=== PATIENT | female | born 1950 | race Caucasian/White ===

== ENCOUNTER → 2017-12-31 | Outpatient (REF) | payer MEDICARE | LOC: M LAB REF 16:28 | DX: R30.0 Dysuria (principal) | CPT/HCPCS: 87186 ==

== ENCOUNTER → 2018-07-19 | Outpatient (REF) | payer MEDICARE ==
[2018-07-19 17:31] LABS: APPEARANCE, URINE CLEAR (CLEAR); BACTERIA, URINE AUTO NEGATIVE (NEGATIVE); BILIRUBIN, URINE AUTO NEGATIVE (NEGATIVE); BLOOD, URINE BLOOD NEGATIVE (NEGATIVE); COLOR, URINE YELLOW (YELLOW); GLUCOSE, URINE (UA) AUTO NEGATIVE (NEGATIVE); KETONE, URINE AUTO NEGATIVE (NEGATIVE); LEUKOCYTE ESTERASE, URINE AUTO NEGATIVE (NEGATIVE); NITRITE, URINE AUTO NEGATIVE (NEGATIVE); PROTEIN, URINE AUTO NEGATIVE (NEGATIVE); RBC, URINE AUTO 0 /HPF (0-3); SPECIFIC GRAVITY URINE AUTO 1.014 (1.002-1.035); SQUAMOUS EPITHELIAL CELL UR AU 0 /HPF (0-6); UROBILINOGEN, URINE AUTO 0.2 mg/dL (0.0-2.0); WBC, URINE AUTO 0 /HPF (0-3)
== END ==
LOC: M SFHCCAPE 10:00
PROVIDERS: ATTEND Physician Assistant
DX: R30.0 Dysuria (principal)
CPT/HCPCS: 81001; 81002; 87086; G0463

== ENCOUNTER → 2018-09-21 | Outpatient (CLI) | payer MEDICARE ==
--- NOTE | 2018-09-26 16:28 | REPMRS ---
Patient History The patient states she had a clinical breast exam in 05/2018. Patient is postmenopausal. No known family history of cancer. Benign excisional biopsy of the left breast, 1996. Took hormonal contraceptives for 10 years. Digital Woman Screen Mammo: September 21, 2018 - Exam #: [id number] Bilateral CC and MLO view(s) were taken. Technologist: Maricel Gomez, Technologist Prior study comparison: 2016, bilateral digital mammo screening bilat, performed at [facility] [place]. November 23, 2015, bilateral digital woman screen mammo, performed at [facility] [place]. November 17, 2014, bilateral digital woman screen mammo, performed at [facility] [place]. FINDINGS: There are scattered fibroglandular densities. There has been no change in the appearance of the mammogram from the prior studies. There is a mild amount of scattered fibroglandular density which is fairly symmetric. There is no interval development of dominant mass, architectural distortion, or clustered microcalcification suggestive of malignancy. 3-D tomosynthesis shows no additional findings. Assessment: BI-RADS/ACR category 1 mammogram. Negative Mammogram. Recommendation Routine screening mammogram of both breasts in 1 year (for women over age 40). This patient's Lifetime Breast Cancer RIsk is estimated at 4.3 %. This mammogram was interpreted with the aid of an FDA-approved computer-aided dectection system. Electronically Signed By: Tyson Plummer MD 09/26/18 [id number]
== END ==
LOC: M WHC 12:42
PROVIDERS: ATTEND Family Medicine
DX: Z12.31 Encounter for screening mammogram for malignant neoplasm of breast (principal)

== ENCOUNTER → 2018-12-07 | Outpatient (REF) | payer MEDICARE ==
[2018-12-07 16:30] LABS: APPEARANCE, URINE CLEAR (CLEAR); BACTERIA, URINE AUTO NEGATIVE (NEGATIVE); BASO % 0.9 % (0.0-1.0); BILIRUBIN, URINE AUTO NEGATIVE (NEGATIVE); BLOOD, URINE BLOOD NEGATIVE (NEGATIVE); COLOR, URINE YELLOW (YELLOW); EOS # 0.2 10^3/uL (0.0-0.50); EOS % 3.5 % (0.0-3.0); GLUCOSE, URINE (UA) AUTO NEGATIVE (NEGATIVE); HEMATOCRIT 42.8 % (36.0-47.0); KETONE, URINE AUTO NEGATIVE (NEGATIVE); LEUKOCYTE ESTERASE, URINE AUTO NEGATIVE (NEGATIVE); LYMPH # 1.4 10^3/uL (1.5-4.5); LYMPH % 31.1 % (24.0-44.0); MEAN CORPUSCULAR HGB CONC 32.7 g/dl (32.0-36.5); MEAN CORPUSCULAR VOLUME 94.9 fl (80.0-96.0); MONO # 0.4 10^3/uL (0.0-0.8); MONO % 7.7 % (0.0-5.0); MUCUS, URINE SMALL (NEGATIVE); NEUTROPHILS # 2.6 10^3/uL (1.8-7.7); NEUTROPHILS % 56.6 % (36.0-66.0); NITRITE, URINE AUTO NEGATIVE (NEGATIVE); PLATELET COUNT, AUTOMATED 260 10^3/uL (150-450); PROTEIN, URINE AUTO NEGATIVE (NEGATIVE); RBC, URINE AUTO 1 /HPF (0-3); RED BLOOD COUNT 4.51 10^6/uL (4.00-5.40); SPECIFIC GRAVITY URINE AUTO 1.014 (1.002-1.035); SQUAMOUS EPITHELIAL CELL UR AU 0 /HPF (0-6); UROBILINOGEN, URINE AUTO 0.2 mg/dL (0.0-2.0); WBC, URINE AUTO 1 /HPF (0-3); WHITE BLOOD COUNT 4.6 10^3/uL (4.0-10.0)
[2018-12-07 16:48] LABS: ALBUMIN 3.9 GM/DL (3.2-5.2); ALT/SGPT 23 U/L (12-78); BILIRUBIN,TOTAL 0.4 MG/DL (0.2-1.0); BLOOD UREA NITROGEN 14 MG/DL (7-18); CALCIUM LEVEL 9.2 MG/DL (8.8-10.2); CARBON DIOXIDE LEVEL 27 MEQ/L (21-32); CHLORIDE LEVEL 108 MEQ/L (98-107); CHOLESTEROL LEVEL 199 MG/DL (<200); CHOLESTEROL RISK RATIO 3.826 (<5); CREATININE FOR GFR 0.76 MG/DL (0.55-1.30); FREE T4 0.94 NG/DL (0.76-1.46); GLOMERULAR FILTRATION RATE > 60.0 (>45); GLUCOSE, FASTING 91 MG/DL (70-100); HDL CHOLESTEROL 52 MG/DL (>40); LDL CHOLESTEROL 125 MG/DL (<100); LIPASE 102 U/L (73-393); NON-HDL-C 147 MG/DL; POTASSIUM SERUM 4.3 MEQ/L (3.5-5.1); SODIUM LEVEL 140 MEQ/L (136-145); TOTAL PROTEIN 7.5 GM/DL (6.4-8.2); TRIGLYCERIDES LEVEL 110 MG/DL (<150)
[2018-12-07 17:17] LABS: TOTAL 25(OH) VITAMIN D 29.1 NG/ML (30.0-100.0)
== END ==
LOC: M SFHCCAPE 07:13
PROVIDERS: ATTEND Physician Assistant
DX: R10.11 Right upper quadrant pain (principal); Z13.6 Encounter for screening for cardiovascular disorders; Z78.0 Asymptomatic menopausal state; K21.9 Gastro-esophageal reflux disease without esophagitis

== ENCOUNTER → 2018-12-08 | Outpatient (CLI) | payer MEDICARE ==
--- NOTE | 2018-12-08 11:16 | REP ---
RIGHT UPPER QUADRANT SONOGRAPHY: HISTORY: Right upper quadrant pain times 1 year. No comparison imaging. Post cholecystectomy. FINDINGS: Scanning through the right upper quadrant of the abdomen demonstrates homogeneous liver parenchyma. No focal liver lesion is seen. Common bile duct is normal post cholecystectomy measuring 0.8 cm in greatest diameter. No pancreatic abnormality is observed. Normal caliber aorta is seen. There is no evidence of ascites. No hydronephrosis is seen on the right kidney. The right kidney measures 10.7 x 5.5 x 5.0 cm. The right kidney contains two cysts. In the upper pole there is a 1.5 cm cyst and in the lower pole there is a 2.1 cm cyst arising from the right kidney. IMPRESSION: There are two right renal cysts. Post cholecystectomy. Otherwise negative right upper quadrant sonogram. Electronically Signed by Dennis Lou MD 12/08/2018 01:08 P
== END ==
LOC: M RAD 07:17
PROVIDERS: ATTEND Physician Assistant
DX: Q61.02 Congenital multiple renal cysts (principal)

== ENCOUNTER → 2018-12-14 | Outpatient (REF) | payer MEDICARE | LOC: M SFHCCAPE 08:52 | PROVIDERS: ATTEND Physician Assistant | DX: R10.11 Right upper quadrant pain (principal) ==

== ENCOUNTER → 2019-01-05 | Outpatient (REF) | payer MEDICARE ==
[2019-01-05 19:32] LABS: APPEARANCE, URINE CLEAR (CLEAR); BACTERIA, URINE AUTO NEGATIVE (NEGATIVE); BILIRUBIN, URINE AUTO NEGATIVE (NEGATIVE); BLOOD, URINE BLOOD NEGATIVE (NEGATIVE); COLOR, URINE YELLOW (YELLOW); GLUCOSE, URINE (UA) AUTO NEGATIVE (NEGATIVE); KETONE, URINE AUTO NEGATIVE (NEGATIVE); LEUKOCYTE ESTERASE, URINE AUTO TRACE (NEGATIVE); MUCUS, URINE SMALL (NEGATIVE); NITRITE, URINE AUTO NEGATIVE (NEGATIVE); PROTEIN, URINE AUTO NEGATIVE (NEGATIVE); RBC, URINE AUTO 0 /HPF (0-3); SPECIFIC GRAVITY URINE AUTO 1.015 (1.002-1.035); SQUAMOUS EPITHELIAL CELL UR AU 0 /HPF (0-6); UROBILINOGEN, URINE AUTO 0.2 mg/dL (0.0-2.0); WBC, URINE AUTO 2 /HPF (0-3)
== END ==
LOC: M SFHCCAPE 08:41
PROVIDERS: ATTEND Physician Assistant
DX: R35.0 Frequency of micturition (principal)

== ENCOUNTER 2019-07-13 09:51 | Day surgery (SDC) | payer MEDICARE ==
[~2019-07-13] VITALS: Ht 157.5 cm; Wt 68.5 kg
[~2019-07-13 09:51] MED LIST: D32000TA PO; MULT1TAB8 PO; VITA-158 PO
[2019-07-13] MEDS ORDERED: NS 1,000 ML IV ONE (11:00)
[2019-07-13] MEDS ORDERED: LIDOCAINE 2% INJ 100 MG/5 ML SDV (FOR ANES.) As Ordered ONE (11:44)
[2019-07-13] MEDS ORDERED: PROPOFOL 200 MG/20 ML VIAL As Ordered ONE ×2 (11:44→12:02)
--- NOTE | 2019-07-13 12:03 | ROOR ---
Patient Name: Annie Orellana Procedure Date: 07/13/2019 11:41 AM Date of : 1950 Age: 68 Room: [facility] Gender: Female Note Status: Finalized Procedure: Colonoscopy Indications: High risk colon cancer surveillance: Personal history of colonic polyps Providers: Emory Kenney Jr, MD Referring MD: Adriano Nelson MD Requesting Provider: Medicines: Propofol per Anesthesia Complications: No immediate complications. Procedure: Pre-Anesthesia Assessment: - Prior to the procedure, a History and Physical was performed, and patient medications and allergies were reviewed. The patient is competent. The risks and benefits of the procedure and the sedation options and risks were discussed with the patient. All questions were answered and informed consent was obtained. Patient identification and proposed procedure were verified by the physician and the nurse in the pre-procedure area and in the procedure room. Mental Status Examination: alert and oriented. Airway Examination: normal oropharyngeal airway and neck mobility. Respiratory Examination: clear to auscultation. CV Examination: normal. ASA Grade Assessment: II - A patient with mild systemic disease. After reviewing the risks and benefits, the patient was deemed in satisfactory condition to undergo the procedure. The anesthesia plan was to use moderate sedation / analgesia (conscious sedation). Immediately prior to administration of medications, the patient was re-assessed for adequacy to receive sedatives. The heart rate, respiratory rate, oxygen saturations, blood pressure, adequacy of pulmonary ventilation, and response to care were monitored throughout the procedure. The physical status of the patient was re-assessed after the procedure. The Colonoscope was introduced through the anus and advanced to the cecum, identified by appendiceal orifice and ileocecal valve. The colonoscopy was performed without difficulty. The patient tolerated the procedure well. The quality of the bowel preparation was adequate. Findings: The rectum, descending colon, transverse colon, ascending colon, cecum, appendiceal orifice and ileocecal valve appeared normal. Two polyps were found in the recto-sigmoid colon and sigmoid colon. The polyps were small in size. These polyps were removed with a cold snare. Resection and retrieval were complete. A few small-mouthed diverticula were found in the sigmoid colon. Impression: - The rectum, descending colon, transverse colon, ascending colon, cecum, appendiceal orifice and ileocecal valve are normal. - Two small polyps at the recto-sigmoid colon and in the sigmoid colon, removed with a cold snare. Resected and retrieved. - Diverticulosis in the sigmoid colon. Recommendation: - Discharge patient to home (ambulatory). - Repeat colonoscopy in 5 years for surveillance. Emory Kenney MD Emory Kenney Jr, MD 07/13/2019 12:03:28 PM Electronically signed by Emory Kenney Jr, MD Number of Addenda: 0 Note Initiated On: 07/13/2019 11:41 AM Estimated Blood Loss: Estimated blood loss: none.
[2019-07-13 12:25] VITALS: BP 126/72
== END 2019-07-13 12:35 | disposition home or self-care (01) ==
LOC: M OPP 09:51
PROVIDERS: ATTEND Surgery
DX: Z12.11 Encounter for screening for malignant neoplasm of colon (principal); Z86.010 Personal history of colon polyps; K63.5 Polyp of colon; K57.30 Diverticulosis of large intestine without perforation or abscess without bleeding

== ENCOUNTER → 2019-07-24 | Outpatient (REF) | payer MEDICARE ==
[2019-07-24 18:10] LABS: APPEARANCE, URINE CLEAR (CLEAR); BACTERIA, URINE AUTO NEGATIVE (NEGATIVE); BILIRUBIN, URINE AUTO NEGATIVE (NEGATIVE); BLOOD, URINE BLOOD NEGATIVE (NEGATIVE); COLOR, URINE YELLOW (YELLOW); GLUCOSE, URINE (UA) AUTO NEGATIVE (NEGATIVE); KETONE, URINE AUTO NEGATIVE (NEGATIVE); LEUKOCYTE ESTERASE, URINE AUTO NEGATIVE (NEGATIVE); NITRITE, URINE AUTO NEGATIVE (NEGATIVE); PROTEIN, URINE AUTO NEGATIVE (NEGATIVE); RBC, URINE AUTO 0 /HPF (0-3); SPECIFIC GRAVITY URINE AUTO 1.011 (1.002-1.035); SQUAMOUS EPITHELIAL CELL UR AU 0 /HPF (0-6); UROBILINOGEN, URINE AUTO 0.2 mg/dL (0.0-2.0); WBC, URINE AUTO 0 /HPF (0-3)
== END ==
LOC: M SFHCCAPE 10:54
PROVIDERS: ATTEND Physician Assistant
DX: R30.0 Dysuria (principal)
CPT/HCPCS: 81001; 81002; 87086; G0463

== ENCOUNTER → 2019-09-06 | Outpatient (CLI) | payer MEDICARE ==
[2019-09-06 10:56] LABS: APPEARANCE, URINE CLEAR (CLEAR); BACTERIA, URINE AUTO NEGATIVE (NEGATIVE); BILIRUBIN, URINE AUTO NEGATIVE (NEGATIVE); BLOOD, URINE BLOOD NEGATIVE (NEGATIVE); COLOR, URINE YELLOW (YELLOW); GLUCOSE, URINE (UA) AUTO NEGATIVE (NEGATIVE); KETONE, URINE AUTO NEGATIVE (NEGATIVE); LEUKOCYTE ESTERASE, URINE AUTO NEGATIVE (NEGATIVE); MUCUS, URINE SMALL (NEGATIVE); NITRITE, URINE AUTO NEGATIVE (NEGATIVE); PROTEIN, URINE AUTO NEGATIVE (NEGATIVE); RBC, URINE AUTO 0 /HPF (0-3); SPECIFIC GRAVITY URINE AUTO 1.014 (1.002-1.035); SQUAMOUS EPITHELIAL CELL UR AU 0 /HPF (0-6); UROBILINOGEN, URINE AUTO 0.2 mg/dL (0.0-2.0); WBC, URINE AUTO 0 /HPF (0-3)
[2019-09-06 10:57] LABS: BASO # 0.1 10^3/uL (0.0-0.2); BASO % 0.9 % (0.0-1.0); EOS # 0.1 10^3/uL (0.0-0.5); EOS % 2.2 % (0.0-3.0); HEMATOCRIT 43.4 % (36.0-47.0); HEMOGLOBIN 13.9 g/dl (12.0-15.5); LYMPH # 1.4 10^3/uL (1.5-5.0); LYMPH % 26.8 % (24.0-44.0); MEAN CORPUSCULAR HEMOGLOBIN 30.6 pg (27.0-33.0); MEAN CORPUSCULAR VOLUME 95.6 fl (80.0-96.0); MONO # 0.5 10^3/uL (0.0-0.8); MONO % 9.1 % (0.0-5.0); NEUTROPHILS # 3.2 10^3/uL (1.5-8.5); NEUTROPHILS % 60.4 % (36.0-66.0); PLATELET COUNT, AUTOMATED 253 10^3/uL (150-450); RED BLOOD COUNT 4.54 10^6/uL (4.00-5.40); WHITE BLOOD COUNT 5.4 10^3/uL (4.0-10.0)
[2019-09-06 11:40] LABS: ALBUMIN 3.7 GM/DL (3.2-5.2); ALT/SGPT 26 U/L (12-78); BILIRUBIN,TOTAL 0.5 MG/DL (0.2-1.0); BLOOD UREA NITROGEN 17 MG/DL (7-18); CALCIUM LEVEL 8.7 MG/DL (8.8-10.2); CARBON DIOXIDE LEVEL 28 MEQ/L (21-32); CHLORIDE LEVEL 103 MEQ/L (98-107); CREATININE FOR GFR 0.88 MG/DL (0.55-1.30); GLOMERULAR FILTRATION RATE > 60.0 (>39); GLUCOSE, FASTING 101 MG/DL (70-100); LIPASE 101 U/L (73-393); POTASSIUM SERUM 4.1 MEQ/L (3.5-5.1); SODIUM LEVEL 138 MEQ/L (136-145); TOTAL PROTEIN 7.5 GM/DL (6.4-8.2)
== END ==
LOC: M LAB 09:26
PROVIDERS: ATTEND Physician Assistant
DX: E10.11 Type 1 diabetes mellitus with ketoacidosis with coma (principal)

== ENCOUNTER → 2019-09-08 | Outpatient (CLI) | payer MEDICARE ==
[~2019-09-08] MED LIST changes: +GASTROGRAFIN SOLUTION 30ML (Q9963) As Ordered ONE; +ISOVUE-370 76% 100ML VIAL (Q9967) As Ordered ONE
--- NOTE | 2019-09-08 12:12 | REP ---
CT of the abdomen and pelvis without and with IV contrast and with bowel contrast for right lower quadrant pain: There are no comparison studies. The visualized lung andrade are unremarkable. The hepatic parenchyma is homogeneous. There is a cholecystectomy. The common biliary duct measures 16 mm transverse diameter and is dilated even in a postcholecystectomy patient. However, there is no intrahepatic biliary duct dilatation. There is no pancreatic duct dilatation. The pancreas and spleen are unremarkable. The adrenals, kidneys and abdominal aorta are unremarkable. There is no periaortic adenopathy or mass. There is no bowel distension or obstruction. There is no diverticulosis or diverticulitis. The mesentery is unremarkable. Pelvis: The appendix is unremarkable. The uterus, adnexa and bladder are unremarkable. There is no ascites or adenopathy. There is bilateral hip osteoarthritis. There is degenerative disc disease in the lumbar spine. I suspect spinal stenosis in the lumbar spine L4-5. Impression: Cholecystectomy. Dilated common biliary duct without intrahepatic ductal dilatation or pancreatic duct dilatation. Probable spinal stenosis and L4-5. Otherwise, negative CT of the abdomen and pelvis. Electronically Signed by Royce Moreno MD 09/08/2019 12:04 P
== END ==
LOC: M RAD 09:57
PROVIDERS: ATTEND Physician Assistant
DX: R10.11 Right upper quadrant pain (principal)
CPT/HCPCS: 74178; Q9963; Q9967

== ENCOUNTER → 2019-10-06 | Outpatient (CLI) | payer MEDICARE ==
[~2019-10-06] MED LIST changes: -GASTROGRAFIN SOLUTION 30ML (Q9963) As Ordered ONE; -ISOVUE-370 76% 100ML VIAL (Q9967) As Ordered ONE
--- NOTE | 2019-10-06 10:16 | REP ---
MRCP EXAM WITHOUT CONTRAST: HISTORY: Right upper quadrant pain. Comparison CT study September 08, 2019 shows prominent common hepatic duct segment. TECHNIQUE: Axial and coronal T2-weighted scans were obtained. MRCP acquisition is acquired and maximal intensity projection images are generated in the usual fashion. MRCP FINDINGS: There is no evidence of intrahepatic biliary ductal dilation. The common hepatic and common bile duct segments are somewhat prominent by MRCP measuring 11-12 mm in greatest diameter. The distal common bile duct is normal measuring 5 mm in greatest diameter. Main pancreatic duct is normal. There is no evidence of choledocholithiasis. No mass lesion is evident. There are two simple cysts in the right kidney. There is a tiny simple cyst in the left lobe of the liver. IMPRESSION: Prominent common hepatic and proximal common bile duct segment post cholecystectomy, 11-12 mm. Normal distal CBD. No obstructing lesions seen. No intrahepatic ductal dilation is observed. Correlation with liver function studies suggested. Electronically Signed by Dennis Lou MD 10/06/2019 06:34 P
== END ==
LOC: M RAD 06:26
PROVIDERS: ATTEND Surgery
DX: R10.11 Right upper quadrant pain (principal)

== ENCOUNTER → 2019-11-01 | Outpatient (CLI) | payer MEDICARE ==
[2019-11-01 14:58] LABS: ALBUMIN 3.5 GM/DL (3.2-5.2); BILIRUBIN,DIRECT 0.1 MG/DL (0.0-0.2); BILIRUBIN,TOTAL 0.4 MG/DL (0.2-1.0); TOTAL PROTEIN 7.3 GM/DL (6.4-8.2)
== END ==
LOC: M LAB 13:54
PROVIDERS: ATTEND Physician Assistant
DX: R10.11 Right upper quadrant pain (principal); R12 Heartburn

== ENCOUNTER → 2020-04-12 | Outpatient (CLI) | payer MEDICARE ==
[2020-04-12 12:43] LABS: HEMATOCRIT 42.9 % (36.0-47.0); HEMOGLOBIN 14.1 g/dl (12.0-15.5); MEAN CORPUSCULAR HEMOGLOBIN 30.4 pg (27.0-33.0); MEAN CORPUSCULAR HGB CONC 32.9 g/dl (32.0-36.5); MEAN CORPUSCULAR VOLUME 92.5 fl (80.0-96.0); PLATELET COUNT, AUTOMATED 274 10^3/uL (150-450); RED BLOOD COUNT 4.64 10^6/uL (4.00-5.40); WHITE BLOOD COUNT 7.3 10^3/uL (4.0-10.0)
[2020-04-12 13:32] LABS: ALBUMIN 3.8 GM/DL (3.2-5.2); ALT/SGPT 25 U/L (12-78); BILIRUBIN,DIRECT < 0.1 MG/DL (0.0-0.2); BILIRUBIN,TOTAL 0.3 MG/DL (0.2-1.0); LIPASE 110 U/L (73-393)
== END ==
LOC: M LAB 12:14
PROVIDERS: ATTEND Internal Medicine Gastroenterology
DX: R10.11 Right upper quadrant pain (principal); K83.8 Other specified diseases of biliary tract; R11.0 Nausea

== ENCOUNTER → 2020-05-20 | Outpatient (CLI) | payer MEDICARE ==
--- NOTE | 2020-05-20 10:33 | REPMRS ---
Patient History The patient states she had a clinical breast exam in April 2020. No known family history of cancer. Benign excisional biopsy of the left breast, 1996. Took hormonal contraceptives for 10 years. 3D TOMOSYNTHESIS WAS PERFORMED. [facility] lifetime risk for breast cancer is 4.1%. VOLPARA DENSITY B. Digital Woman Screen Mammo: May 20, 2020 - Exam #: [id number] Bilateral CC and MLO view(s) were taken. Technologist: RT Sanchez Prior study comparison: September 21, 2018, bilateral digital woman screen mammo performed at [facility]. 2017, bilateral digital mammo screening bilat, performed at [facility] [place][Note 3]. FINDINGS: There are scattered fibroglandular densities. There has been no change in the appearance of the mammogram from the prior studies. There is a mild amount of residual fibroglandular tissue which is fairly symmetric. There is no interval development of dominant mass, architectural distortion, or clustered microcalcification suggestive of malignancy. Assessment: BI-RADS/ACR category 1 mammogram. Negative Mammogram. Recommendation Routine screening mammogram in 1 year (for women over age 40). This mammogram was interpreted with the aid of an FDA-approved computer-aided dectection system. Electronically Signed By: Royce Mills MD 05/20/20 [id number]
== END ==
LOC: M WHC 09:28
PROVIDERS: ATTEND Obstetrics & Gynecology
DX: Z12.31 Encounter for screening mammogram for malignant neoplasm of breast (principal); Z92.0 Personal history of contraception

== ENCOUNTER → 2020-07-30 | Outpatient (REF) | payer MEDICARE ==
[~2020-07-30] MED LIST changes: +FISHCAP PO
[2020-07-30 12:37] LABS: INR 0.93; PROTHROMBIN TIME 12.7 SECONDS (12.5-14.3)
== END ==
LOC: M LAB REF 11:18
PROVIDERS: ATTEND Internal Medicine
DX: Z01.818 Encounter for other preprocedural examination (principal)

== ENCOUNTER → 2020-08-03 | Outpatient (CLI) | payer MEDICARE | LOC: M LABSMTC 10:53 | PROVIDERS: ATTEND Anesthesiology | DX: Z01.812 Encounter for preprocedural laboratory examination (principal); Z20.828 Contact with and (suspected) exposure to other viral communicable diseases ==

== ENCOUNTER 2020-08-08 06:00 | Inpatient (IN) | payer MEDICARE ==
[~2020-08-08] VITALS: Ht 157.5 cm; Wt 74.4 kg
[2020-08-08] VITALS (8 sets, daily range): BP systolic 104–145; BP diastolic 54–80
[2020-08-08] MEDS ORDERED: TRANEXAMIC ACID 100 MG/ML 10ML VIAL As Ordered ONE (07:12)
[2020-08-08] MEDS ORDERED: ceFAZolin 1GM VIAL (J0690 PER 500MG) As Ordered ONE (07:12)
[2020-08-08] MEDS ORDERED: SCOPOLAMINE 1MG TRANSDERMAL PATCH As Ordered ONE (07:23)
[2020-08-08] MEDS ORDERED: ACETAMINOPHEN 500 MG TAB As Ordered ONE (07:24)
[2020-08-08] MEDS ORDERED: ceFAZolin 2 GM/D5W 50 ML IV BAG (J0690 PER 500MG) As Ordered ONE (07:24)
[2020-08-08] MEDS ORDERED: LR 1,000 ML IV ONE (07:30)
[2020-08-08] MEDS ORDERED: SCOPOLAMINE 1MG TRANSDERMAL PATCH TOP ONE (07:30)
[2020-08-08] MEDS ORDERED: ACETAMINOPHEN 500 MG TAB PO ONE (07:30)
[2020-08-08] MEDS ORDERED: ceFAZolin SOD 2 GM in IV 1 EA IV ONE (07:30)
[2020-08-08] MEDS ORDERED: METOCLOPRAMIDE INJ 10MG/2ML VIAL (J2765 PER 1) As Ordered ONE (08:00)
[2020-08-08] MEDS ORDERED: MIDAZOLAM INJ 2MG/2ML VIAL (J2250 PER 1MG) As Ordered ONE (08:00)
[2020-08-08] MEDS ORDERED: propofoL 200 MG/20 ML VIAL As Ordered ONE (08:00)
[2020-08-08] MEDS ORDERED: ROCURONIUM BROMIDE 50 MG/5 ML VIAL As Ordered ONE (08:00)
[2020-08-08] MEDS ORDERED: dexameTHASONE 4 MG/ML 1ML VIAL (J1100 PER 1MG) As Ordered ONE (08:00)
[2020-08-08] MEDS ORDERED: SUGAMMADEX SODIUM 500 MG/5 ML VIAL (BRIDION) As Ordered ONE (08:00)
[2020-08-08] MEDS ORDERED: LIDOCAINE 2% 100MG/5ML SDV (FOR ANES.) As Ordered ONE (08:00)
[2020-08-08] MEDS ORDERED: fentaNYL 100 MCG/2 ML INJECTION (J3010) As Ordered ONE ×2 (08:00→08:01)
[2020-08-08] MEDS ORDERED: ONDANSETRON 4MG/2ML VIAL As Ordered ONE (08:00)
[2020-08-08] MEDS ORDERED: DESFLURANE 240 ML INHALANT As Ordered ONE (08:49)
--- NOTE | 2020-08-08 09:34 | RO ---
OPERATIVE NOTE DATE OF OPERATION: 08/08/2020 PREOPERATIVE DIAGNOSIS: Right hip degenerative arthritis. POSTOPERATIVE DIAGNOSIS: Right hip degenerative arthritis. PROCEDURE: Right total hip arthroplasty using a size 6 standard offset Winter stem with a -2 neck x 36 mm diameter ball and a 54 Gription cup with a 54 neutral polyethylene liner. SURGEON: Elijah Moore M.D. ANESTHESIA: General endotracheal tube anesthetic. COMPLICATIONS: None. SPECIMEN: Femoral head. ESTIMATED BLOOD LOSS: 200 mL. COMPLICATIONS: None. ENVIRONMENTAL INSPECTOR: Stacie Lu PA-C DESCRIPTION OF PROCEDURE: Antibiotics were given intravenously preoperative. Successful general endotracheal tube anesthetic was established. She was placed in the lateral decubitus position with right up upper most on a [place] hip positioner with abdominal area well-padded, especially the peroneal nerve and an axillary role was utilized. The right hip area was carefully prepped and draped in the usual sterile fashion. Then after an appropriate time-out, a longitudinal incision was made for a lateral approach to the hip. Bovee cautery was used to coagulate crossing vessels down to the tensor fascia, which was divided in line with the skin incision. We split the gluteus medius anterior one-third posterior two-third junction and divided the underlying gluteus minimus and hip capsule dissecting the tissues from the anterior aspect of the proximal femur as we externally and dislocated the hip anteriorly. The starter reamer was placed in the piriformis fossa followed by the canal finding reamer and then the lateralizing reamer and then, we reamed up to a size 5. Trial broaches were then inserted, advancing it up to a size 5. It was not felt necessary to use the calcar planer. We exposed the acetabulum at this point, performed a labral excision 360 degrees, and then reamed beginning at 47 mm advanced up to 53. The trial 54 cup fit very nicely; thus, I called for the 54 cup. I used the extramedullary alignment jig to estimate our version in abduction and then inserted the 54 cup after copiously irrigated. A central hole eliminator was then placed and then, the polyethylene was placed and secured, made sure it was well-seated. Then we exposed the proximal femur, once again irrigated again as we did several times throughout the surgery, inserted the #5 broach; but now after we irrigated thoroughly, I felt that we could put a size 6. Thus, I did use the #6 reamer to expand the canal distally. Then, we placed a #6 broach and it fit nicely. Trial reduction was performed with a standard 1.5 neck and she had very good stability to flexion, internal rotation, extension, and external rotation. Thus, I felt this was the appropriate size implants to use. We removed the trial, irrigated copiously the femoral canal, and placed the real #6 stem. The 6 stem was a couple millimeters prouder than what the broach was; thus, I did trial with a -2 neck, and she still remained very stable with flexion, internal rotation, extension, and external rotation, and there was really no soft tissue telescoping of significance; thus, I felt the -2 would help prevent overtightening. We then dislocated the hip, dried the trunnion thoroughly, and placed the real #2 head on the trunnion, and then reduced the hip after copiously irrigating once again. We then closed the anterior hip capsule and the gluteus minimus back anatomically with interrupted #1 PDS sutures and the gluteus medius was closed back anatomically with interrupted #1 PDS sutures, irrigating between layers. Closed the tensor fascia with a combination of #1 PDS sutures and a running #1 STRATAFIX. Irrigated the deep subdermal tissues and then closed with 2-0 PDS sutures and haley in the skin covered by an Optifoam dressing, and then she was turned supine, awakened from general endotracheal anesthesia, after having tolerated the procedure well. She was transferred to the recovery room in stable condition. There were no intraoperative complications. Ashley Stacie Lu was critical to the success of this difficult procedure by helping with appropriate soft tissue retraction, help to manipulate the leg, helped to dislocate and relocate the hip several times throughout the surgery, help to close the wound and prepare the patient for surgery, amongst many other tasks to allow me to perform the operation smooth, efficiently, and safely.
[2020-08-08] MEDS ORDERED: MORPHINE 2 MG/ML 1ML VIAL (J2270) As Ordered ONE (09:37)
[2020-08-08] MEDS ORDERED: oxyCODONE 5MG TAB As Ordered ONE (09:37)
[2020-08-08] MEDS: oxyCODONE 5MG TAB PO PRN ×2 (09:38→10:21)
[2020-08-08] MEDS ORDERED: ONDANSETRON 4MG/2ML VIAL IV PRN ×2 (10:15→11:15)
[2020-08-08] MEDS ORDERED: fentaNYL 100 MCG/2 ML INJECTION (J3010) IV PRN (10:15)
[2020-08-08] MEDS ORDERED: LR 1,000 ML IV SCH ×2 (10:15→11:15)
--- NOTE | 2020-08-08 10:22 | REP ---
INDICATION: POST OP EVAL IN PACU WILL CALL WHEN READY Status post arthroplasty. COMPARISON: None. TECHNIQUE: AP and cross-table lateral views. FINDINGS: The patient is status post right hip replacement with normal positioning and appearance to the femoral and acetabular components. Overlying postsurgical changes appreciated. IMPRESSION: Satisfactory right hip replacement radiographs. <Electronically signed by Dallas Cummings > 08/08/20 [id number]
[2020-08-08] MEDS ORDERED: MORPHINE 4 MG/ML 1ML VIAL/SYRINGE (J2270) IV PRN (11:15)
[2020-08-08] MEDS ORDERED: PERCOCET 5MG/325MG TAB PO PRN (11:15)
[2020-08-08] MEDS ORDERED: MORPHINE 2 MG/ML 1ML VIAL (J2270) IV PRN (11:15)
--- NOTE | 2020-08-08 11:53 | CR.PDOC ---
General Date of Consultation: Aug 08, 2020 Consultation REASON FOR CONSULTATION/CHIEF COMPLAINT:med mgt post right VI HISTORY OF PRESENT ILLNESS: 69 y/o female former smoker quit 30 years ago, renal cysts, GERD, vit D deficiency, vitamin C deficiency, OA, hyperlipidemia s/p right hip replacement due to severe OA failed on outpt conservative mgt with limitations of ADLs. Hospitalist was consulted to manage chronic medical problems. She denies chest pain, pressure, tightness, sob, dizziness, lightheadedness, PND, orthopnea, n/v/d/abd pain, dyuria, urgency, frequency. All other ROS negative 12points. In recovery, pt still had numbness of her b/l LE, but able to wiggle her toes, and follow commands. ALLERGIES: Please see below. HOME MEDICATIONS: Please see below. PAST MEDICAL HISTORY: former smoker quit 30 years ago, renal cysts, GERD, vit D deficiency, vitamin C deficiency, OA, hyperlipidemia s/p right hip replacement due to severe OA b/l carpal tunnel PAST SURGICAL HISTORY: cholecystectomy age 15 back surgery in her 40's left knee arthroscopy colonoscopy b/l carpal tunnel release FAMILY HISTORY: Father: 70 heart disease Mother:92 htn Unexpected deaths due to medical reasons: SOCIAL HISTORY: former smoker, has chair lift. lives w and has supportive daughter. two story home REVIEW OF SYSTEMS:12point ros neg aside from +findings on HPI PHYSICAL EXAMINATION: VITAL SIGNS: Please see below. GENERAL APPEARANCE:no distress aaox 3 RESPIRATORY: CTAB CARDIOVASCULAR: S1S2 rrr ABDOMEN: soft nt nd +bs x 4quadrants EXTREMITIES: rt hip bandaged. no edema LABORATORY DATA: Please see below. ASSESSMENT/PLAN: 69 y/o female former smoker quit 30 years ago, renal cysts, GERD, vit D deficiency, vitamin C deficiency, OA, hyperlipidemia s/p right hip replacement due to severe OA failed on outpt conservative mgt with limitations of ADLs. Hospitalist was consulted to manage chronic medical problems. She denies chest pain, pressure, tightness, sob, dizziness, lightheadedness, PND, orthopnea, n/v/d/abd pain, dyuria, urgency, frequency. All other ROS negative 12points. In recovery, pt still had numbness of her b/l LE, but able to wiggle her toes, and follow commands. righ hip oa -s/p rtha 08/08/20 -postop mgt per ortho-including dvt prophylaxis, pain meds, bowel regimen, activity -aru screen GERD -asx Vit D def -resume home meds Dyslipidemia -fish oil vit c def -resume home meds dispo: aru screen Vital Signs/I&O Vital Signs Date Time Temp Pulse Resp B/P (MAP) Pulse Ox O2 Delivery O2 Flow Rate FiO2 08/08/20 11:15 97.1 75 14 135/77 (96) 95 Nasal Cannula 2.0 Allergies Coded Allergies: No Known Allergies (Unverified , 07/05/19) Home Medications Scheduled Cholecalciferol (Vitamin D3) (Vitamin D3) 2,000 Unit Tablet, 2,000 UNIT PO DAILY, (Reported) [Fish Oil] , 600 MG PO DAILY, (Reported) ODILON LUTZ MD Aug 08, 2020 11:53
[2020-08-08] MEDS: ceFAZolin SOD 2 GM in IV 1 EA IV SCH ×2 (15:59→23:06)
[2020-08-08] MEDS: PERCOCET 5MG/325MG TAB PO PRN ×2 (16:00→23:07)
--- NOTE | 2020-08-08 17:07 | HPE ---
HISTORY AND PHYSICAL DATE OF ADMISSION: 08/08/2020 ATTENDING PHYSICIAN: Maribell JIMÉNEZ MD CHIEF COMPLAINT: Right hip pain and stiffness. HISTORY: Patient is a pleasant 69-year-old female with progressively worsening right hip pain and stiffness. She has failed to improve with conservative measures. She continues to have symptoms with weightbearing activities and activities of daily living. She consented for an elective right total hip arthroplasty with Dr. Moore for her continued symptoms. Medical optimization completed with Dr. Post. CURRENT MEDICATIONS: None. ALLERGIES: SEPTRA CHRONIC MEDICAL CONDITIONS: 1. Carpal tunnel in the bilateral upper extremities. 2. Degenerative disk disease of the lumbar spine. 3. Polyosteoarthritis. PAST SURGICAL HISTORY: 1. Cholecystectomy. 2. Lumbar spine surgery. 3. Bilateral carpal tunnel release. 4. Left knee arthroscopy. 5. Colonoscopy. SOCIAL HISTORY: Patient is a former smoker and quit in 2004. Occasionally consumes alcohol. REVIEW OF SYSTEMS: Patient denies fevers, chills, nausea, vomiting, or diarrhea. Denies chest pain, shortness of breath, lightheadedness, dizziness, or headaches. She denies any upper respiratory or urinary tract infection symptoms. She does continue to have right hip pain with weight bearing activities and activities of daily living. PHYSICAL EXAMINATION: GENERAL: Well-nourished, well-developed female in no apparent distress. She is alert, oriented, and cooperative. Mood and affect are appropriate. VITAL SIGNS: Height 5 feet 2 inches, weight 160 pounds, temperature 96.8, blood pressure 120/72, heart rate 72, respirations 18. NECK: Supple without lymphadenopathy. HEART: Regular rate and rhythm. LUNGS: Clear to auscultation bilaterally. Breathing is regular and nonlabored. ABDOMEN: Soft, nontender. Bowel sounds are present. MUSCULOSKELETAL: The right hip exhibits no gross abnormalities. Skin is intact. The patient is not using any assistive devices for ambulation. She is walking with a limp favoring the right lower extremity. The patient has decreased motion of the hip with pain on range of motion testing. Calf is soft and nontender. EXTREMITIES: Warm and well perfused. She is neurovascularly intact distally. LABORATORY DATA: EKG shows normal sinus rhythm. Right hip x-ray notable for end stage degenerative changes. Prothrombin time 12.7, INR 0.93. Complete blood count showed WBC 5.9, RBC 4.81, hemoglobin 14.5, hematocrit 43, platelets 267, erythrocyte sedimentation rate elevated at 25. Comprehensive metabolic profile showed fasting glucose 92, BUN 17, creatinine 0.8, sodium 137, potassium 4.3, chloride 101, carbon dioxide 27, calcium 9.5, alkaline phosphatase 111, total bilirubins 0.3, AST 17, ALT 22, albumin 3.7, total proteins 7.6, albumin/globulin ratio decreased at 0.95, GFR greater than 60. Urinalysis negative. IMPRESSION: Right hip degenerative arthritis with x-rays notable for end stage degenerative changes. PLAN: Patient has consented for an elective right total hip arthroplasty with Dr. Moore for her continued symptoms. Medical optimization completed with Dr. Post. The patient is using her Hibiclens and Bactroban as directed. She will be n.p.o. after midnight the night prior to surgery. She has had a negative COVID test.
--- NOTE | 2020-08-08 17:48 | REPVR ---
PROCEDURE INFORMATION: Exam: US Duplex Right Lower Extremity Veins, Limited Exam date and time: 08/08/2020 5:27 PM Age: 69 years old Clinical indication: Pain; Prior surgery; Surgery date: Post-operative (0-2 days); Surgery type: RT hip replacement; Additional info: R/O dvt TECHNIQUE: Imaging protocol: Real-time Duplex ultrasound of the Right Lower Extremity with 2-D gonsales scale, color Doppler flow and spectral waveform analysis with image documentation. Limited exam was focused on the right lower extremity veins. COMPARISON: No relevant prior studies available. FINDINGS: Right deep veins: Unremarkable. The common femoral, femoral and popliteal veins are patent without thrombus. Normal Doppler waveforms. Normal compressibility and/or augmentation response. Right superficial veins: Unremarkable. Saphenofemoral junction is patent without thrombus. Soft tissues: Unremarkable. IMPRESSION: No sonographic evidence of deep vein thrombosis. Electronically signed by: Cornelius Andrade On 08/08/2020 17:48:14 PM
--- NOTE | 2020-08-08 18:23 | REP ---
INDICATION: r/o fracture COMPARISON: None. TECHNIQUE: AP, lateral views of the right tibia/fibula. FINDINGS: Age-related degenerative changes at the knee and ankle joint noted. No obvious acute fracture or dislocation. No subcutaneous emphysema or foreign body. IMPRESSION: . No acute fracture or dislocation. <Electronically signed by Dallas Cummings > 08/08/20 [id number]
--- NOTE | 2020-08-08 18:26 | REPVR ---
PROCEDURE INFORMATION: Exam: CT Right Lower Extremity Without Contrast, Hip Exam date and time: 08/08/2020 6:00 PM Age: 69 years old Clinical indication: Pain; Right; Prior surgery; Surgery date: Post-operative (0-2 days); Surgery type: Hip replacement today; Additional info: R/O hematoma TECHNIQUE: Imaging protocol: CT of the Right lower extremity without contrast was performed. Exam focused on the hip. Axial, coronal and sagittal reformatted images were created and reviewed. Radiation optimization: All CT scans at this facility use at least one of these dose optimization techniques: automated exposure control; mA and/or kV adjustment per patient size (includes targeted exams where dose is matched to clinical indication); or iterative reconstruction. COMPARISON: IN Hip, Ap,Lat 08/08/2020 9:41 AM FINDINGS: Bones/joints: Postoperative changes associated with recent total right hip arthroplasty. No evidence of hardware complication. No CT evidence of acute fracture or dislocation. Alignment anatomic. Soft tissues: Moderate amount of soft tissue swelling and gas surrounding the right hip joint, predominantly in the gluteal and proximal quadriceps musculature. No convincing organized collection or hematoma. IMPRESSION: 1. Postoperative changes associated with recent total right hip arthroplasty. No convincing organized collection or hematoma. 2. Additional findings, as above. Electronically signed by: Cornelius Andrade On 08/08/2020 18:26:46 PM
[2020-08-08] MEDS: ASPIRIN 81 MG ENTERIC TAB PO SCH (21:18)
[2020-08-09 02:00] VITALS: BP 115/65
[2020-08-09] MEDS: PERCOCET 5MG/325MG TAB PO PRN ×3 (05:26→21:29)
[2020-08-09 06:00] VITALS: BP 120/64
[2020-08-09 07:45] LABS: HEMATOCRIT 35.3 % (36.0-47.0); HEMOGLOBIN 11.3 g/dl (12.0-15.5); MEAN CORPUSCULAR HEMOGLOBIN 29.7 pg (27.0-33.0); MEAN CORPUSCULAR VOLUME 92.9 fl (80.0-96.0); PLATELET COUNT, AUTOMATED 208 10^3/uL (150-450); WHITE BLOOD COUNT 9.5 10^3/uL (4.0-10.0)
[2020-08-09] MEDS: ASPIRIN 81 MG ENTERIC TAB PO SCH ×2 (07:59→21:28)
[2020-08-09] MEDS: MOM 30ML SUSPENSION UDC PO SCH (07:59)
[2020-08-09] MEDS: ceFAZolin SOD 2 GM in IV 1 EA IV SCH (08:00)
[2020-08-09] MEDS: MIRALAX *UNIT DOSE* 17GM PACKET PO SCH (08:00)
[2020-08-09 08:22] LABS: ALBUMIN 3.3 GM/DL (3.2-5.2); ALT/SGPT 19 U/L (12-78); BILIRUBIN,TOTAL 0.6 MG/DL (0.2-1.0); BLOOD UREA NITROGEN 13 MG/DL (7-18); CALCIUM LEVEL 8.5 MG/DL (8.8-10.2); CARBON DIOXIDE LEVEL 26 MEQ/L (21-32); CHLORIDE LEVEL 102 MEQ/L (98-107); CREATININE FOR GFR 0.78 MG/DL (0.55-1.30); GLOMERULAR FILTRATION RATE > 60.0 (>39); GLUCOSE, FASTING 113 MG/DL (70-100); POTASSIUM SERUM 3.7 MEQ/L (3.5-5.1); SODIUM LEVEL 133 MEQ/L (136-145)
--- NOTE | 2020-08-09 09:23 | REP ---
INDICATION: Previous back surgery. Foot weakness COMPARISON: None. TECHNIQUE: AP, lateral, bilateral oblique, and coned-down views of the lumbar spine. FINDINGS: Normal alignment and lordosis is maintained. There is no evidence for acute fracture/compression injury or subluxation. Moderate to advanced multilevel degenerative changes include osteophytosis, endplate sclerosis, disc space narrowing and hypertrophic facet changes. Findings are most pronounced at the L4-5 and L5-S1 levels. IMPRESSION: Moderate to advanced multilevel degenerative spondylosis primarily involving lower lumbar spine. No acute fracture/compression injury or subluxation. <Electronically signed by Dallas Cummings > 08/09/20 [id number]
--- NOTE | 2020-08-09 10:31 | IPNPDOC ---
Date Seen The patient was seen on 08/09/20. Progress Note SUBJECTIVE: Patient complained of right foot weakness with foot drop. Awaiting MRI of the lumbosacral spine No paresthesias. Pain is controlled. 3 out of 10 on a pain scale of the right hip. No fever, chills, shortness of breath overnight OBJECTIVE: PHYSICAL EXAMINATION: VITAL SIGNS: Please see below. GENERAL APPEARANCE:no distress aaox 3, speaks in full sentences without conversational dyspnea HEENT: No JVD, thyromegaly, cervical lymphadenopathy. Moist mucous membranes. Trachea is midline. No facial asymmetry , No carotid bruit, stridor RESPIRATORY: CTAB air entry is equal bilaterally. No adventitious breath sounds CARDIOVASCULAR: S1S2 rrr, no murmurs, rubs or gallops noted ABDOMEN: soft nt nd +bs x 4quadrants. No hepatosplenomegaly, rebound or guarding EXTREMITIES: rt hip bandaged. no edema . NEUROLOGIC: Motor function is 5 out of 5 bilateral upper extremities and right lower extremity. Left foot drop. No paresthesias bilateral upper and lower extremities. DTRs are intact LABORATORY DATA: Please see below. ASSESSMENT/PLAN: 69 y/o female former smoker quit 30 years ago, renal cysts, GERD, vit D deficiency, vitamin C deficiency, OA, hyperlipidemia s/p right hip replacement due to severe OA failed on outpt conservative mgt with limitations of ADLs. Hospitalist was consulted to manage chronic medical problems. She denies chest pain, pressure, tightness, sob, dizziness, lightheadedness, PND, orthopnea, n/v/d/abd pain, dyuria, urgency, frequency. All other ROS negative 12points. In recovery, pt still had numbness of her b/l LE, but able to wiggle her toes, and follow commands. righ hip oa -s/p rtha 08/08/20 -postop day #1 mgt per ortho-including dvt prophylaxis, pain meds, bowel regimen, activity -aru screen Right foot drop -MRI of lumbar spine ordered GERD -asx Vit D def -resume home meds Dyslipidemia -fish oil vit c def -resume home meds dispo: aru screen VS, I&O, 24H, Fishbone Vital Signs/I&O Vital Signs Date Time Temp Pulse Resp B/P (MAP) Pulse Ox O2 Delivery O2 Flow Rate FiO2 1/8/21 06:00 98.3 74 16 120/64 (82) 95 Room Air 08/08/20 15:15 2.0 I&O- Last 24 Hours up to 6 AM 08/09/20 06:00 Intake Total 2620 ml Output Total 1050 ml Balance 1570 ml Laboratory Data 24H LABS Laboratory Tests 2 08/09/20 07:29: Nucleated Red Blood Cells % (auto) 0.0, Anion Gap 5L, Glomerular Filtration Rate > 60.0, Calcium Level 8.5L, Total Bilirubin 0.6, Aspartate Amino Transf (AST/SGOT) 22, Alanine Aminotransferase (ALT/SGPT) 19, Alkaline Phosphatase 83, Total Protein 7.0, Albumin 3.3, Albumin/Globulin Ratio 0.9L CBC/BMP Laboratory Tests 08/09/20 07:29 ODILON LUTZ MD Aug 09, 2020 10:31
[2020-08-09] MEDS ORDERED: ISOVUE-370 76% 100ML VIAL As Ordered ONE (13:54)
[2020-08-09 14:00] VITALS: BP 138/71
--- NOTE | 2020-08-09 15:18 | REP ---
INDICATION: bilateral with run off, assess vascular status. COMPARISON: None. TECHNIQUE: Helical scanning is acquired and 3 mm axial images are generated. Coronal and sagittal MPR and MIP images are generated. 3D surface rendered images and complex luminal trace MPR images are generated. The contrast enhancement dose is 100 mL of intravenous Isovue 370. FINDINGS: There is good opacification of the arterial tree. Nonvascular CT findings include surgical absence of the gallbladder. The common bile duct is 10 mm which is the upper range of normal post cholecystectomy. There are 2 cortical cysts in the right kidney, the larger of which measures 2.5 cm in diameter. There is a right hip arthroplasty in place. Postoperative soft tissue emphysema and lateral skin haley are seen about the hip arthroplasty. There is mild vascular calcification of the normal caliber aorta and mild vascular calcification of the common iliacs is seen. Internal external iliac arteries are unremarkable and widely patent. The right common femoral artery, right proximal superficial femoral artery, and the right profundal femoral artery and its branches appear intact. There is no evidence of arterial extravasation of kirt hematoma collection or pseudoaneurysm. Popliteal artery on the right is widely patent. Peroneal and posterior tibial artery on the right appear intact. I cannot confirm flow in the dorsalis pedis artery across the ankle on the right. On the left the femoral arteries the popliteal artery are intact and widely patent. Calf trifurcation vessels are unremarkable. The anterior and posterior tibial arteries are patent across the ankle on the left.. IMPRESSION: There is no evidence of pseudoaneurysm, active extravasation, or hematoma at the arthroplasty site in the right hip. I cannot confirm flow in the anterior tibial artery on the right across the ankle, dorsalis pedis artery. Minimal vascular calcification in the aorta and iliac vessels. Otherwise negative CT angiography of the abdominal aorta pelvis and lower extremities. <Electronically signed by Cruz Lou > 08/09/20 [id number]
[2020-08-09 20:00] VITALS: BP 136/60
--- NOTE | 2020-08-09 21:21 | REPVR ---
PROCEDURE INFORMATION: Exam: MR Lumbar Spine Without Contrast. Exam date and time: 08/09/2020 8:07 PM Age: 69 years old Clinical indication: Weakness; Low back pain; Prior surgery; Surgery date: 6+ months; Surgery type: Laminectomy >20 years prior; Patient HX: RT foot numbness; Additional info: Right foot weaknes, prior back surgery TECHNIQUE: Imaging protocol: Multiplanar magnetic resonance images of the lumbar spine without intravenous contrast. COMPARISON: CR Spine. Lumbosacral, complete 08/09/2020 9:05 AM FINDINGS: Chronic postoperative changes compatible with right laminectomy at L4. Vertebral body heights are maintained. Multilevel Modic type 1 edematous degenerative endplate change. No evidence of acute lumbar spine fracture. No cord compression. No abnormal cord signal. Conus medullaris terminates at the L1 level. Paravertebral soft tissues are unremarkable. L1-L2: Broad-based disc bulge and facet hypertrophy causes mild canal narrowing and mild bilateral foraminal narrowing. L2-L3: Broad-based disc bulge and facet hypertrophy causes mild canal narrowing with mild left and moderate right foraminal narrowing. L3-L4: Broad-based disc bulge and facet hypertrophy causes moderate to severe canal narrowing with crowding of the cauda equina. Severe right and moderate to severe left foraminal narrowing. L4-L5: Status post right laminectomy. Broad-based disc bulge and facet hypertrophy cause mild canal narrowing and severe bilateral foraminal narrowing. L5-S1: Broad-based disc bulge and facet hypertrophy cause mild canal narrowing and severe bilateral foraminal narrowing. IMPRESSION: Multilevel advanced spondylotic changes of the lumbar spine, most pronounced at L3-L4 with moderate to severe canal narrowing and crowding of the cauda equina, as detailed above. Electronically signed by: Carlos Smith On 08/09/2020 21:22:00 PM
[2020-08-10 05:50] VITALS: BP 131/60
[2020-08-10] MEDS ORDERED: ECOT81TA5 PO (06:47)
[2020-08-10] MEDS ORDERED: PERC5TAB12 PO (06:47)
[2020-08-10 08:04] LABS: HEMATOCRIT 35.4 % (36.0-47.0); HEMOGLOBIN 11.2 g/dl (12.0-15.5); MEAN CORPUSCULAR HEMOGLOBIN 29.9 pg (27.0-33.0); MEAN CORPUSCULAR HGB CONC 31.6 g/dl (32.0-36.5); MEAN CORPUSCULAR VOLUME 94.4 fl (80.0-96.0); PLATELET COUNT, AUTOMATED 199 10^3/uL (150-450); RED BLOOD COUNT 3.75 10^6/uL (4.00-5.40); WHITE BLOOD COUNT 10.6 10^3/uL (4.0-10.0)
[2020-08-10] MEDS: MOM 30ML SUSPENSION UDC PO SCH (08:23)
[2020-08-10] MEDS: MIRALAX *UNIT DOSE* 17GM PACKET PO SCH (08:23)
[2020-08-10] MEDS: ASPIRIN 81 MG ENTERIC TAB PO SCH ×2 (08:23→20:35)
[2020-08-10 08:42] LABS: ALBUMIN 3.2 GM/DL (3.2-5.2); ALT/SGPT 16 U/L (12-78); BILIRUBIN,TOTAL 0.8 MG/DL (0.2-1.0); BLOOD UREA NITROGEN 10 MG/DL (7-18); CALCIUM LEVEL 8.6 MG/DL (8.8-10.2); CARBON DIOXIDE LEVEL 26 MEQ/L (21-32); CHLORIDE LEVEL 103 MEQ/L (98-107); CREATININE FOR GFR 0.73 MG/DL (0.55-1.30); GLOMERULAR FILTRATION RATE > 60.0 (>39); GLUCOSE, FASTING 101 MG/DL (70-100); POTASSIUM SERUM 3.8 MEQ/L (3.5-5.1); SODIUM LEVEL 137 MEQ/L (136-145); TOTAL PROTEIN 6.7 GM/DL (6.4-8.2)
--- NOTE | 2020-08-10 12:15 | IPNPDOC ---
Date Seen The patient was seen on 08/10/20. Progress Note SUBJECTIVE: denies pain in the right hip is well controlled on current pain medications. She continues to have difficulty ambulating in the right lower extremity due to a foot drop. MRI of the lumbar spine shows crowding around the cauda equina. Patient denies any constipation, urinary or bowel incontinence OBJECTIVE: PHYSICAL EXAMINATION: VITAL SIGNS: Please see below. GENERAL APPEARANCE: No pallor, no icterus , no distress HEENT: No JVD, thyromegaly, cervical lymphadenopathy. Moist mucous membranes. Trachea is midline. No facial asymmetry , No carotid bruit, stridor RESPIRATORY: CTAB air entry is equal bilaterally. No adventitious breath sounds CARDIOVASCULAR: S1S2 rrr, no murmurs, rubs or gallops noted ABDOMEN: soft nt nd +bs x 4quadrants. No hepatosplenomegaly, rebound or guarding EXTREMITIES: rt hip bandaged. no edema . NEUROLOGIC: Motor function is 5 out of 5 bilateral upper extremities and right lower extremity. Left foot drop. No paresthesias bilateral upper and lower extremities. DTRs are intact LABORATORY DATA: Please see below. , IMAGING STUDIES: Exam: MR Lumbar Spine Without Contrast. Exam date and time: 08/09/2020 8:07 PM Age: 69 years old Clinical indication: Weakness; Low back pain; Prior surgery; Surgery date: 6+ months; Surgery type: Laminectomy >20 years prior; Patient HX: RT foot numbness; Additional info: Right foot weaknes, prior back surgery TECHNIQUE: Imaging protocol: Multiplanar magnetic resonance images of the lumbar spine without intravenous contrast. COMPARISON: CR Spine. Lumbosacral, complete 08/09/2020 9:05 AM FINDINGS: Chronic postoperative changes compatible with right laminectomy at L4. Vertebral body heights are maintained. Multilevel Modic type 1 edematous degenerative endplate change. No evidence of acute lumbar spine fracture. No cord compression. No abnormal cord signal. Conus medullaris terminates at the L1 level. Paravertebral soft tissues are unremarkable. L1-L2: Broad-based disc bulge and facet hypertrophy causes mild canal narrowing and mild bilateral foraminal narrowing. L2-L3: Broad-based disc bulge and facet hypertrophy causes mild canal narrowing with mild left and moderate right foraminal narrowing. L3-L4: Broad-based disc bulge and facet hypertrophy causes moderate to severe canal narrowing with crowding of the cauda equina. Severe right and moderate to severe left foraminal narrowing. L4-L5: Status post right laminectomy. Broad-based disc bulge and facet hypertrophy cause mild canal narrowing and severe bilateral foraminal narrowing. L5-S1: Broad-based disc bulge and facet hypertrophy cause mild canal narrowing and severe bilateral foraminal narrowing. IMPRESSION: Multilevel advanced spondylotic changes of the lumbar spine, most pronounced at L3-L4 with moderate to severe canal narrowing and crowding of the cauda equina, as detailed above. Electronically signed by: Rocco Howard On 08/09/2020 21:22:00 PM DD: ROCCO HOWARD MD 08/09/202006 ASSESSMENT/PLAN: 69 y/o female former smoker quit 30 years ago, renal cysts, GERD, vit D deficiency, vitamin C deficiency, OA, hyperlipidemia s/p right hip replacement due to severe OA failed on outpt conservative mgt with limitations of ADLs. Hospitalist was consulted to manage chronic medical problems. She denies chest pain, pressure, tightness, sob, dizziness, lightheadedness, PND, orthopnea, n/v/d/abd pain, dyuria, urgency, frequency. All other ROS negative 12points. In recovery, pt still had numbness of her b/l LE, but able to wiggle her toes, and follow commands. righ hip oa -s/p rtha 08/08/20 -postop day #1 mgt per ortho-including dvt prophylaxis, pain meds, bowel regimen, activity -aru screen Right foot drop -MRI of lumbar spine central canal stenosis with crowding of the cauda equina deferred to orthopedic surgery for further management orthospine transferred to [place] as inpatient versus outpatient or neurosurgical evaluation GERD -asx Vit D def -resume home meds Dyslipidemia -fish oil vit c def -resume home meds dispo: aru screen VS, I&O, 24H, Fishbone Vital Signs/I&O Vital Signs Date Time Temp Pulse Resp B/P (MAP) Pulse Ox O2 Delivery O2 Flow Rate FiO2 08/10/20 05:50 99.1 96 18 131/60 (83) 95 Room Air 08/08/20 15:15 2.0 I&O- Last 24 Hours up to 6 AM 08/10/20 06:00 Intake Total 1950 ml Output Total 1200 ml Balance 750 ml Laboratory Data 24H LABS Laboratory Tests 2 08/10/20 07:33: Nucleated Red Blood Cells % (auto) 0.0, Anion Gap 8, Glomerular Filtration Rate > 60.0, Calcium Level 8.6L, Total Bilirubin 0.8, Aspartate Amino Transf (AST/SGOT) 26, Alanine Aminotransferase (ALT/SGPT) 16, Alkaline Phosphatase 79, Total Protein 6.7, Albumin 3.2, Albumin/Globulin Ratio 0.9L CBC/BMP Laboratory Tests 08/10/20 07:33 ODILON LUTZ MD Aug 10, 2020 12:11
[2020-08-10] MEDS ORDERED: PROHANCE 279.3MG/ML 15ML VIAL As Ordered ONE (14:02)
[2020-08-10 16:00] VITALS: BP 154/79
--- NOTE | 2020-08-10 16:31 | REPVR ---
PROCEDURE INFORMATION: Exam: MR Right Lower Extremity Joint Without and With Contrast, Knee Exam date and time: 08/10/2020 3:37 PM Age: 69 years old Clinical indication: Other: RT foot drop; Prior surgery; Surgery date: Post-operative (0-2 days); Surgery type: RT hip replacement 08/08/20; Patient HX: Evaluate peroneal nerve; PT has foot drop after hip replacement; Additional info: Evaluate peroneal nerve; PT has foot drop after hip replaceme TECHNIQUE: Imaging protocol: MR of the Right lower extremity joint without and with contrast. Exam focused on the knee. 3D rendering (Not supervised by radiologist): MIP and/or 3D reconstructed images were created by the technologist. Contrast material: PROHANCE; Contrast volume: 14 ml; Contrast route: INTRAVENOUS (IV); COMPARISON: CT-Hip WITHOUT CONTRAST RIGHT 08/08/2020 6:13 PM FINDINGS: The anterior and posterior cruciate ligaments are intact. The medial collateral ligament and lateral collateral complex are normal in appearance. The medial and lateral menisci are normal in morphology and signal intensity. No meniscal tear is identified. The extensor mechanism is intact. There is no evidence of acute fracture or dislocation. Bone marrow signal is normal. Alignment is anatomic. There is mild tricompartmental osteoarthrosis. There is a small suprapatellar effusion. There is intramuscular edema in the visualized portion of the anterior compartment, suggestive of denervation. The visualized portion of the common peroneal nerve is grossly normal in appearance. IMPRESSION: 1. Intramuscular edema in the visualized portion of the anterior compartment, suggestive of denervation in the deep peroneal nerve distribution. 2. Additional findings, as above. Electronically signed by: Cornelius Andrade On 08/10/2020 16:31:00 PM
--- NOTE | 2020-08-10 17:08 | CR ---
CONSULTATION DATE: 08/10/2020 CONSULTING PHYSICIAN: Dr. Moore REASON FOR CONSULTATION: Right leg numbness, weakness. HISTORY OF PRESENT ILLNESS: Annie Orellana is a 69-year-old woman who was admitted at [facility] for elective right hip replacement due to severe osteoarthritis after failing conservative management. Patient states that she had surgery on this morning around 8 o'clock. Surgery lasted for an hour. Patient was lying in left lateral decubitus position during surgery for right hip replacement. Patient states that she woke up in recovery room and told nursing staff that she was able to move her left leg, but she was unable to move her right foot and felt numbing and tingling in her right leg. Her symptoms mostly affect right leg below her right knee. She was brought from recovery room to floor and felt the same. Dr. Moore saw her and ordered more tests, which are summarized below. Patient has chronic pain and had lumbosacral laminectomy more than 20 years ago. She denies any worsening of her back pain currently. She denies numbness, weakness of left leg or arms, face, trouble speaking, seizures, dysphagia, dysarthria, diplopia, urinary incontinence, falls, or loss of consciousness. She feels numbing and tingling in her right leg affecting top and bottom of right foot, right askew more than right calf, below her right knee. She feels weakness of right foot dorsiflexion and eversion. She feels slight pain below her right knee. She is on bedrest due to her recent hip surgery. DIAGNOSTIC STUDIES: MRI scan of lumbosacral spine was reviewed and showed moderate/severe L3-4 lumbosacral spinal stenosis with bilateral L3-4, L4-5, L5-S1 foraminal stenosis. CT angiography of right leg did not show any hematoma around hip region, but radiology could not confirm right tibial and dorsalis pedis artery flow. CT scan of the right leg showed stable postoperative changes from right hip arthroplasty without hematoma. MEDICAL HISTORY: 1. Former smoker 30 years ago. 2. Renal cysts. 3. Acid reflux. 4. Vitamin D deficiency. 5. Osteoarthritis. 6. Dyslipidemia. 7. Bilateral carpal tunnel surgery. 8. Lumbosacral laminectomy several years ago. 9. Cholecystectomy. 10. Left knee arthroscopic surgery. FAMILY HISTORY: Father due to coronary artery disease. Mother with history of hypertension. SOCIAL HISTORY: She is a former smoker. She lives with her . REVIEW OF SYSTEMS: All systems were reviewed and found to be noncontributory except as mentioned in the history of present illness. ALLERGIES: None. HOME MEDICATIONS: Vitamin D3, fish oil. PHYSICAL EXAMINATION: Temperature 99.1, pulse 96, respirations 16, blood pressure 131/60. HEART: Regular rate and rhythm. LUNGS: Clear to auscultation. ABDOMEN: Soft, nontender, nondistended. No pedal edema. No musculoskeletal abnormalities were visible. No rash. No tremor. No signs of meningeal irritation. Patient is awake, alert, oriented to place, person, and time. Normal speech, comprehension, and repetition. Extraocular muscles are intact. No facial weakness. Tongue and uvula are midline. Strength 5/5 in both arms and left leg throughout. She has decreased touch, cold, pinprick, and vibration sensation in dorsum and plantar right foot, and right askew is more affected than right calf. Sensation is intact in rest of her body. Deep tendon reflexes are 2+ in arms, knees, and left ankle and absent at right ankle. Strength in her right foot dorsiflexion and eversion is 0/5. Strength in her right foot plantarflexion and inversion is 4/5. [id number] testing is normal. There is no dysmetria. Gait could not be tested due to right foot drop and recent right hip surgery. ASSESSMENT: 1. Suspected right sciatic nerve compression affecting right peroneal more than right tibial nerves. Localization of right sciatic nerve compression is likely around right hip region. This can be neuropraxia or axonotmesis. 2. Right peroneal neuropathy at fibular head is less likely, as it would not affect tibial and sural nerve distribution symptoms, which this patient appears to have. 3. Chronic back pain due to moderate to severe lumbosacral spinal stenosis and is incidental and does not seem to have any relation to her current problems. Her symptoms are only in right leg and represent complete effect of sacral nerve compression. Her lumbosacral spine with stenosis and foraminal stenosis is bilateral and is less likely to contribute to significant unilateral symptoms. PLAN: 1. Dr. Moore is going to ask spine surgery to see her in consultation. 2. Electromyogram (EMG) nerve conduction study on outpatient basis. Sensory nerve changes take a week, and motor nerve and needle EMG changes take 2-3 weeks to appear. This will help decide pathophysiology and prognosis of her current symptoms. 3. AFO, physical, occupational therapy, and use walker as recommended by physical and occupational therapy. 4. Follow with our office in a couple of weeks after hospital discharge. We can try arranging her EMG nerve conduction study before her followup. I communicated my impression and plan to Dr. Moore.
[2020-08-10 22:00] VITALS: BP 152/81
[2020-08-10] MEDS: ACETAMINOPHEN TAB 650MG DOSE (2X325MG) PO PRN (22:29)
[2020-08-11] MEDS: ACETAMINOPHEN TAB 650MG DOSE (2X325MG) PO PRN (04:57)
[2020-08-11 06:00] VITALS: BP 129/72
[2020-08-11] MEDS: MIRALAX *UNIT DOSE* 17GM PACKET PO SCH (08:36)
[2020-08-11] MEDS: MOM 30ML SUSPENSION UDC PO SCH (08:36)
[2020-08-11] MEDS: ASPIRIN 81 MG ENTERIC TAB PO SCH (08:36)
--- NOTE | 2020-08-11 16:23 | CR ---
CONSULTATION DATE: 08/10/2020 CONSULTATION FOR: Dr. Moore CHIEF COMPLAINT: Foot drop, right lower extremity. HISTORY OF PRESENT ILLNESS: She had hip replacement surgery on 08/08/2020, uneventful surgery, however, was appreciated to have weakness in the right lower extremity, unable to dorsiflex the foot after the surgery. She does not recall having problems like that prior ot the surgery, but she has had a discectomy at L4-5 many years ago, some decades ago, but she feels that she did okay afterward. I reviewed the operative notes. I reviewed the postoperative imaging studies, including postoperative CT. I reviewed the MRI scan of the lumbar spine, which reflects spinal stenosis. In my opinion, moderate degree at 3-4, 5-1 in the lateral recess, some foraminal stenosis at 3-4, 5-1, however, no focal acute process that would explain an acute footdrop with sensory deficit. The patient indicates that she has a tingly sensation. It seems to be in the outside of the calf/askew area to the top of the foot. It is worse when the foot is in the dependent position. After the surgery, she had thromboembolic deterrent (EMILY) hose on, but they have been discontinued. She does have a history of carpal tunnel surgery on both upper extremities in the past. CLINICAL EXAMINATION: Alert and cooperative. Mood and affect appropriate. She moves really well. The wound looks fine. She was out of bed. When I came to see her she was ambulating. She uses a walker. She cannot really effectively dorsiflex the right foot. I suspect that she has 1 or 2 out of 5 dorsiflexion strength just barely activity. She has decreased sensation in the dorsum of the foot; when I palpate around the dorsum of the foot, she seems to appreciate a tingly sensation, so there is some sensation there. This seems to extend up toward the proximal fibula. Percussion of the proximal fibula, Tinel's, generates symptoms radiating from the proximal fibula down toward the foot. Atrophy: The leg on the left side measures about 38 cm, and the leg on the right side measures about 37 cm. That is at the greatest circumference. 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 I would recommend not wearing EMILY hose on the right lower extremity and avoiding any pressure. Further considerations based on the advice of neurology could include electrodiagnostic studies and potentially decompression of the peroneal nerve as it crosses the fibula. I will review these findings with DR. Moore. Patient also apparently is going to be seeing neurology at some point.
== END 2020-08-11 13:15 | disposition home health service (06) | DRG 470 ==
LOC: M OR 06:00 → M MS5PR 10:40
PROVIDERS: ADMIT Orthopaedic Surgery; ATTEND Orthopaedic Surgery
PROC: 0SR902Z Replacement of Right Hip Joint with Metal on Polyethylene Synthetic Substitute, Open Approach (ICD-10-PCS; principal; 2020-08-08 07:30)
DX: M16.11 Unilateral primary osteoarthritis, right hip (principal); K21.9 Gastro-esophageal reflux disease without esophagitis; E55.9 Vitamin D deficiency, unspecified; E54 Ascorbic acid deficiency; N28.1 Cyst of kidney, acquired; G57.31 Lesion of lateral popliteal nerve, right lower limb; M21.371 Foot drop, right foot; E78.5 Hyperlipidemia, unspecified; Z79.899 Other long term (current) drug therapy; Z87.891 Personal history of nicotine dependence; Z90.49 Acquired absence of other specified parts of digestive tract

== ENCOUNTER → 2021-01-29 | Outpatient (REF) | payer MEDICARE ==
[~2021-01-29] MED LIST changes: +ECOT81TA5 PO; +PERC5TAB12 PO
[2021-01-29 18:07] LABS: PERCENT SATURATION 25.9 % (13.2-45.0)
== END ==
LOC: M LAB REF 16:45
PROVIDERS: ATTEND Internal Medicine
DX: R53.83 Other fatigue (principal); R06.02 Shortness of breath; D50.9 Iron deficiency anemia, unspecified

== ENCOUNTER → 2021-04-04 | Outpatient (CLI) | payer MEDICARE ==
--- NOTE | 2021-04-04 09:43 | REP ---
INDICATION: ABD PAIN. COMPARISON: 12/08/2018. TECHNIQUE: Real-time sonographic evaluation of right upper quadrant performed. FINDINGS: The patient has had a prior cholecystectomy.. There is no intrahepatic or extrahepatic biliary dilatation, common bile duct measures 9 mm in maximum diameter. The liver demonstrates homogeneous echotexture with no gross mass. Pancreas is not well visualized due to overlying bowel gas. The visualized portions are grossly unremarkable. The right kidney demonstrates no hydronephrosis, with a normal size of 12.2 cm in length. Two simple cysts are seen in the right kidney, 1 in the lower pole measuring 2.4 x 2.1 x 2.3 cm and 1 in the upper pole 1.5 x 1.4 x 1.7 cm.No free fluid is seen. IMPRESSION: Prior cholecystectomy. No significant biliary dilatation. No free fluid. No acute finding. <Electronically signed by Royce Mills > 04/04/21 0940
[2021-04-04 10:46] LABS: HEMATOCRIT 45.1 % (36.0-47.0); HEMOGLOBIN 14.6 g/dl (12.0-15.5); MEAN CORPUSCULAR HEMOGLOBIN 29.7 pg (27.0-33.0); MEAN CORPUSCULAR HGB CONC 32.4 g/dl (32.0-36.5); MEAN CORPUSCULAR VOLUME 91.9 fl (80.0-96.0); PLATELET COUNT, AUTOMATED 263 10^3/uL (150-450); RED BLOOD COUNT 4.91 10^6/uL (4.00-5.40); WHITE BLOOD COUNT 5.7 10^3/uL (4.0-10.0)
[2021-04-04 11:20] LABS: ALBUMIN 3.7 GM/DL (3.2-5.2); ALT/SGPT 19 U/L (12-78); BILIRUBIN,TOTAL 0.4 MG/DL (0.2-1.0); BLOOD UREA NITROGEN 12 MG/DL (7-18); CALCIUM LEVEL 9.4 MG/DL (8.8-10.2); CARBON DIOXIDE LEVEL 26 MEQ/L (21-32); CHLORIDE LEVEL 105 MEQ/L (98-107); CREATININE FOR GFR 0.75 MG/DL (0.55-1.30); GLOMERULAR FILTRATION RATE > 60.0 (>39); GLUCOSE, FASTING 95 MG/DL (70-100); LIPASE 100 U/L (73-393); POTASSIUM SERUM 4.8 MEQ/L (3.5-5.1); SODIUM LEVEL 137 MEQ/L (136-145); TOTAL PROTEIN 7.8 GM/DL (6.4-8.2)
== END ==
LOC: M RAD 08:59
PROVIDERS: ATTEND Internal Medicine Gastroenterology
DX: Q61.02 Congenital multiple renal cysts (principal); R10.11 Right upper quadrant pain; K83.8 Other specified diseases of biliary tract; R11.0 Nausea; Z90.49 Acquired absence of other specified parts of digestive tract

== ENCOUNTER → 2021-07-14 | Outpatient (REF) | LOC: M LABSMTC 10:24 | PROVIDERS: ATTEND Pediatrics | DX: Z11.52 Encounter for screening for COVID-19 (principal); Z20.822 Contact with and (suspected) exposure to COVID-19 ==

== ENCOUNTER → 2021-07-20 | Outpatient (REF) | payer MEDICARE | LOC: M LAB REF 22:56 | PROVIDERS: ATTEND Physician Assistant | DX: R30.0 Dysuria (principal) ==

== ENCOUNTER 2021-09-02 17:55 | Emergency (ER) | payer MEDICARE ==
[~2021-09-02] VITALS: Ht 157.5 cm; Wt 68.2 kg
[2021-09-02 23:45] VITALS: BP 130/76
== END 2021-09-03 00:14 | disposition home or self-care (01) ==
LOC: M ED 17:55
DX: M76.892 Other specified enthesopathies of left lower limb, excluding foot (principal)

== ENCOUNTER → 2022-01-14 | Outpatient (REF) | payer MEDICARE ==
[2022-01-14 16:41] LABS: APPEARANCE, URINE CLEAR (CLEAR); BACTERIA, URINE AUTO NEGATIVE (NEGATIVE); BILIRUBIN, URINE AUTO NEGATIVE (NEGATIVE); BLOOD, URINE BLOOD NEGATIVE (NEGATIVE); COLOR, URINE YELLOW (YELLOW); GLUCOSE, URINE (UA) AUTO NEGATIVE (NEGATIVE); KETONE, URINE AUTO NEGATIVE (NEGATIVE); LEUKOCYTE ESTERASE, URINE AUTO 2+ (NEGATIVE); MUCUS, URINE SMALL (NEGATIVE); NITRITE, URINE AUTO NEGATIVE (NEGATIVE); PROTEIN, URINE AUTO NEGATIVE (NEGATIVE); RBC, URINE AUTO 2 /HPF (0-3); SPECIFIC GRAVITY URINE AUTO 1.019 (1.002-1.035); SQUAMOUS EPITHELIAL CELL UR AU 1 /HPF (0-6); UROBILINOGEN, URINE AUTO 0.2 mg/dL (0.0-2.0); WBC, URINE AUTO 9 /HPF (0-3)
== END ==
LOC: M LAB REF 16:17
PROVIDERS: ATTEND Obstetrics & Gynecology
DX: N39.0 Urinary tract infection, site not specified (principal)

== ENCOUNTER → 2022-01-20 | Outpatient (CLI) | payer MEDICARE | LOC: M WHC 08:57 | PROVIDERS: ATTEND Obstetrics & Gynecology | DX: R10.31 Right lower quadrant pain (principal); N64.4 Mastodynia | CPT/HCPCS: 76642; 76830; 76856; 77066; G0279 ==

== ENCOUNTER → 2022-05-05 | Outpatient (REF) | payer MEDICARE ==
[2022-05-05 11:45] LABS: HEMATOCRIT 45.1 % (36.0-47.0); HEMOGLOBIN 14.8 g/dl (12.0-15.5); MEAN CORPUSCULAR HGB CONC 32.8 g/dl (32.0-36.5); MEAN CORPUSCULAR VOLUME 94.4 fl (80.0-96.0); PLATELET COUNT, AUTOMATED 261 10^3/uL (150-450); RED BLOOD COUNT 4.78 10^6/uL (4.00-5.40); WHITE BLOOD COUNT 5.4 10^3/uL (4.0-10.0)
[2022-05-05 12:06] LABS: ALBUMIN 3.7 GM/DL (3.2-5.2); ALT/SGPT 20 U/L (12-78); BILIRUBIN,TOTAL 0.4 MG/DL (0.2-1.0); BLOOD UREA NITROGEN 13 MG/DL (7-18); CALCIUM LEVEL 9.3 MG/DL (8.8-10.2); CARBON DIOXIDE LEVEL 28 MEQ/L (21-32); CHLORIDE LEVEL 106 MEQ/L (98-107); CHOLESTEROL LEVEL 192 MG/DL (<200); CHOLESTEROL RISK RATIO 3.428 (<5); CREATININE FOR GFR 0.75 MG/DL (0.55-1.30); FREE T4 0.86 NG/DL (0.76-1.46); GLOMERULAR FILTRATION RATE > 60.0 (>39); GLUCOSE, FASTING 103 MG/DL (70-100); HDL CHOLESTEROL 56 MG/DL (>40); LDL CHOLESTEROL 113 MG/DL (<100); NON-HDL-C 136 MG/DL; POTASSIUM SERUM 4.6 MEQ/L (3.5-5.1); SODIUM LEVEL 138 MEQ/L (136-145); TOTAL PROTEIN 7.6 GM/DL (6.4-8.2); TRIGLYCERIDES LEVEL 117 MG/DL (<150)
[2022-05-06 21:44] LABS: TOTAL 25(OH) VITAMIN D 27.8 NG/ML (30.0-100.0)
== END ==
LOC: M SFHCCLAY 07:39
PROVIDERS: ATTEND Family Medicine
DX: E78.00 Pure hypercholesterolemia, unspecified (principal); R53.82 Chronic fatigue, unspecified; E55.9 Vitamin D deficiency, unspecified; E53.8 Deficiency of other specified B group vitamins

== ENCOUNTER → 2022-12-15 | Outpatient (CLI) | payer MEDICARE | LOC: M SOG 07:50 | PROVIDERS: ATTEND Physician Assistant | DX: M19.031 Primary osteoarthritis, right wrist (principal) ==

== ENCOUNTER → 2022-12-21 | Outpatient (REF) | payer MEDICARE ==
[2022-12-21 17:23] LABS: BASO # 0.1 10^3/uL (0.0-0.2); EOS # 0.2 10^3/uL (0.0-0.5); EOS % 3.1 % (0.0-3.0); HEMATOCRIT 44.9 % (36.0-47.0); HEMOGLOBIN 14.4 g/dl (12.0-15.5); LYMPH # 1.5 10^3/uL (1.5-5.0); LYMPH % 29.1 % (24.0-44.0); MEAN CORPUSCULAR HEMOGLOBIN 30.5 pg (27.0-33.0); MEAN CORPUSCULAR HGB CONC 32.1 g/dl (32.0-36.5); MEAN CORPUSCULAR VOLUME 95.1 fl (80.0-96.0); MONO # 0.6 10^3/uL (0.0-0.8); MONO % 11.3 % (2.0-8.0); NEUTROPHILS # 2.9 10^3/uL (1.5-8.5); NEUTROPHILS % 55.3 % (36.0-66.0); PLATELET COUNT, AUTOMATED 256 10^3/uL (150-450); RED BLOOD COUNT 4.72 10^6/uL (4.00-5.40); WHITE BLOOD COUNT 5.2 10^3/uL (4.0-10.0)
[2022-12-21 17:43] LABS: LIPASE 31 U/L (12-53)
[2022-12-21 17:45] LABS: AMYLASE 43 U/L (30-118)
[2022-12-21 17:46] LABS: ALKALINE PHOSPHATASE 100 U/L (46-116); ALT/SGPT 23 U/L (7.0-40); AST/SGOT 22 U/L (<34); BILIRUBIN,TOTAL 0.4 MG/DL (0.3-1.2); BLOOD UREA NITROGEN 15 MG/DL (9-23); CALCIUM LEVEL 9.3 MG/DL (8.3-10.6); CARBON DIOXIDE LEVEL 28 MMOL/L (20-31); CHLORIDE LEVEL 105 MMOL/L (98-107); CREATININE FOR GFR 0.78 MG/DL (0.55-1.30); GLOMERULAR FILTRATION RATE > 60.0 (>39); GLUCOSE, FASTING 94 MG/DL (74-106); POTASSIUM SERUM 4.5 MMOL/L (3.5-5.1); SODIUM LEVEL 136 MMOL/L (136-145); THYROID STIMULATING HORMONE 2.623 uIU/ML (0.55-4.78); TOTAL PROTEIN 7.4 G/DL (5.7-8.2)
== END ==
LOC: M SFHCCLAY 11:13
PROVIDERS: ATTEND Physician Assistant
DX: R42 Dizziness and giddiness (principal); Z79.899 Other long term (current) drug therapy

== ENCOUNTER 2023-01-04 12:55 | Emergency (ER) | payer MEDICARE ==
[~2023-01-04] VITALS: Ht 157.5 cm; Wt 70.6 kg
[2023-01-04 12:56] VITALS: BP 135/73; TEMP 97.5; O2SAT 96
[2023-01-04] MEDS ORDERED: NORCO, ANEXSIA 5/325MG TABLET (HYDROcodone/ACETAMINOPHEN) PO ONE (14:55)
[2023-01-04] MEDS ORDERED: BOOSTRIX VACCINE (TETANUS/DIPHTH/ACEL. PERTUSSIS) 0.5ML SYR IM ONE (14:55)
[2023-01-04] MEDS ORDERED: [UNRECOGNIZED DRUG - CODE] TOP ×2 (17:22→18:37)
[2023-01-04] MEDS ORDERED: [UNRECOGNIZED DRUG - CODE] XX ×2 (17:22→18:37)
[2023-01-04] MEDS ORDERED: HYDR-3713 PO ×2 (17:22→18:37)
[2023-01-04] MEDS ORDERED: BACI500O8 TOP ×2 (17:22→18:37)
== END 2023-01-04 17:42 | disposition home or self-care (01) ==
LOC: M ED 12:55
DX: T24.232A Burn of second degree of left lower leg, initial encounter (principal); X12.XXXA Contact with other hot fluids, initial encounter; Y92.009 Unspecified place in unspecified non-institutional (private) residence as the place of occurrence of the external cause; Y93.89 Activity, other specified; Y99.8 Other external cause status

== ENCOUNTER → 2023-02-15 | Outpatient (CLI) | payer MEDICARE ==
[~2023-02-15] MED LIST changes: +BACI500O8 TOP; +HYDR-3713 PO; +[UNRECOGNIZED DRUG - CODE] TOP; +[UNRECOGNIZED DRUG - CODE] XX
== END ==
LOC: M WHC 13:23
PROVIDERS: ATTEND Nurse Practitioner Family
DX: Z12.31 Encounter for screening mammogram for malignant neoplasm of breast (principal); N64.4 Mastodynia
CPT/HCPCS: 77066; G0279

== ENCOUNTER → 2023-06-01 | Outpatient (REF) | payer MEDICARE ==
[2023-06-01 12:05] LABS: HEMATOCRIT 43.9 % (36.0-47.0); HEMOGLOBIN 14.6 g/dl (12.0-15.5); MEAN CORPUSCULAR HEMOGLOBIN 30.9 pg (27.0-33.0); MEAN CORPUSCULAR HGB CONC 33.3 g/dl (32.0-36.5); MEAN CORPUSCULAR VOLUME 92.8 fl (80.0-96.0); PLATELET COUNT, AUTOMATED 246 10^3/uL (150-450); RED BLOOD COUNT 4.73 10^6/uL (4.00-5.40); WHITE BLOOD COUNT 5.3 10^3/uL (4.0-10.0)
[2023-06-01 12:27] LABS: ALBUMIN 3.8 G/DL (3.2-5.2); ALKALINE PHOSPHATASE 95 U/L (46-116); ALT/SGPT 12 U/L (7.0-40); AST/SGOT 17 U/L (<34); BILIRUBIN,TOTAL 0.6 MG/DL (0.3-1.2); BLOOD UREA NITROGEN 13 MG/DL (9-23); CALCIUM LEVEL 9.5 MG/DL (8.3-10.6); CARBON DIOXIDE LEVEL 27 MMOL/L (20-31); CHLORIDE LEVEL 103 MMOL/L (98-107); CHOLESTEROL LEVEL 198 MG/DL (<200); CREATININE FOR GFR 0.72 MG/DL (0.55-1.30); FREE T4 0.88 NG/DL (0.89-1.76); GLOMERULAR FILTRATION RATE > 60.0 (>39); GLUCOSE, FASTING 95 MG/DL (74-106); POTASSIUM SERUM 4.4 MMOL/L (3.5-5.1); SODIUM LEVEL 139 MMOL/L (136-145); THYROID STIMULATING HORMONE 3.134 uIU/ML (0.55-4.78); TOTAL 25(OH) VITAMIN D 28.5 NG/ML (20.0-100.0); TOTAL PROTEIN 7.3 G/DL (5.7-8.2); TRIGLYCERIDES LEVEL 79 MG/DL (<150); VITAMIN B12 LEVEL 375 PG/ML (211-911)
[2023-06-01 12:45] LABS: HDL CHOLESTEROL 58.2 MG/DL (>40); NON-HDL-C 139.8 MG/DL
[2023-06-01 18:27] LABS: APPEARANCE, URINE CLEAR (CLEAR); BACTERIA, URINE AUTO NEGATIVE (NEGATIVE); BILIRUBIN, URINE AUTO NEGATIVE (NEGATIVE); BLOOD, URINE BLOOD NEGATIVE (NEGATIVE); COLOR, URINE YELLOW (YELLOW); GLUCOSE, URINE (UA) AUTO NEGATIVE (NEGATIVE); KETONE, URINE AUTO NEGATIVE (NEGATIVE); LEUKOCYTE ESTERASE, URINE AUTO NEGATIVE (NEGATIVE); MUCUS, URINE SMALL (NEGATIVE); NITRITE, URINE AUTO NEGATIVE (NEGATIVE); PROTEIN, URINE AUTO NEGATIVE (NEGATIVE); RBC, URINE AUTO 0 /HPF (0-3); SQUAMOUS EPITHELIAL CELL UR AU 0 /HPF (0-6); UROBILINOGEN, URINE AUTO 0.2 mg/dL (0.0-2.0); WBC, URINE AUTO 0 /HPF (0-3)
== END ==
LOC: M SFHCCLAY 08:23
PROVIDERS: ATTEND Family Medicine
DX: E78.00 Pure hypercholesterolemia, unspecified (principal); R53.82 Chronic fatigue, unspecified; E55.9 Vitamin D deficiency, unspecified; E53.8 Deficiency of other specified B group vitamins; K21.9 Gastro-esophageal reflux disease without esophagitis; N28.1 Cyst of kidney, acquired; Z79.899 Other long term (current) drug therapy

== ENCOUNTER → 2024-01-11 | Outpatient (CLI) | payer MEDICARE | LOC: M WHC 09:40 | PROVIDERS: ATTEND Nurse Practitioner Family | DX: N64.4 Mastodynia (principal); N64.53 Retraction of nipple; R92.323 Mammographic fibroglandular density, bilateral breasts | CPT/HCPCS: 77066; G0279 ==

== ENCOUNTER → 2024-06-15 | Outpatient (REF) | payer MEDICARE ==
[2024-06-15 12:00] LABS: ALBUMIN 3.8 G/DL (3.2-5.2); ALKALINE PHOSPHATASE 101 U/L (35-104); ALT/SGPT 14 U/L (7.0-40); AST/SGOT 14 U/L (<34); BILIRUBIN,TOTAL 0.6 MG/DL (0.3-1.2); BLOOD UREA NITROGEN 15 MG/DL (9-23); CARBON DIOXIDE LEVEL 29 MMOL/L (20-31); CHLORIDE LEVEL 105 MMOL/L (98-107); CHOLESTEROL LEVEL 200 MG/DL (<200); CHOLESTEROL RISK RATIO 3.38 (<5); CREATININE FOR GFR 0.78 MG/DL (0.55-1.30); GLOMERULAR FILTRATION RATE > 60.0 (>39); GLUCOSE, FASTING 103 MG/DL (74-106); HEMATOCRIT 45.2 % (36.0-47.0); HEMOGLOBIN 14.8 g/dl (12.0-15.5); LDL CHOLESTEROL 126.4 MG/DL (<100); MEAN CORPUSCULAR HEMOGLOBIN 30.5 pg (27.0-33.0); MEAN CORPUSCULAR HGB CONC 32.7 g/dl (32.0-36.5); MEAN CORPUSCULAR VOLUME 93.2 fl (80.0-96.0); PLATELET COUNT, AUTOMATED 235 10^3/uL (150-450); POTASSIUM SERUM 4.3 MMOL/L (3.5-5.1); RED BLOOD COUNT 4.85 10^6/uL (4.00-5.40); SODIUM LEVEL 140 MMOL/L (136-145); TOTAL PROTEIN 7.9 G/DL (5.7-8.2); TRIGLYCERIDES LEVEL 73 MG/DL (<150); WHITE BLOOD COUNT 5.2 10^3/uL (4.0-10.0)
[2024-06-15 12:02] LABS: FREE T4 1.04 NG/DL (0.89-1.76); THYROID STIMULATING HORMONE 2.263 uIU/ML (0.55-4.78)
== END ==
LOC: M SFHCCLAY 07:30
PROVIDERS: ATTEND Family Medicine
DX: E78.00 Pure hypercholesterolemia, unspecified (principal); K21.9 Gastro-esophageal reflux disease without esophagitis; R53.82 Chronic fatigue, unspecified; E55.9 Vitamin D deficiency, unspecified; E53.8 Deficiency of other specified B group vitamins

== ENCOUNTER → 2024-06-22 | Outpatient (REF) | payer MEDICARE ==
[2024-06-22 19:23] LABS: APPEARANCE, URINE CLEAR (CLEAR); BACTERIA, URINE AUTO NEGATIVE (NEGATIVE); BILIRUBIN, URINE AUTO NEGATIVE (NEGATIVE); BLOOD, URINE BLOOD NEGATIVE (NEGATIVE); COLOR, URINE STRAW (YELLOW); GLUCOSE, URINE (UA) AUTO NEGATIVE (NEGATIVE); KETONE, URINE AUTO NEGATIVE (NEGATIVE); LEUKOCYTE ESTERASE, URINE AUTO NEGATIVE (NEGATIVE); NITRITE, URINE AUTO NEGATIVE (NEGATIVE); PROTEIN, URINE AUTO NEGATIVE (NEGATIVE); RBC, URINE AUTO 0 /HPF (0-3); SPECIFIC GRAVITY URINE AUTO 1.005 (1.002-1.035); SQUAMOUS EPITHELIAL CELL UR AU 0 /HPF (0-6); UROBILINOGEN, URINE AUTO 0.2 mg/dL (0.0-2.0); WBC, URINE AUTO 0 /HPF (0-3)
[2024-06-24 23:43] LABS: PROTEIN, TOTAL SO 7.5 g/dL (6.1-8.1)
[2024-06-27 11:12] LABS: ALBUMIN SO 4.4 g/dL (3.8-4.8); ALPHA 1 GLOBULINS SO 0.3 g/dL (0.2-0.3); ALPHA 2 GLOBULINS SO 0.7 g/dL (0.5-0.9); BETA 2 GLOBULIN SO 0.5 g/dL (0.2-0.5); BETA GLOBULIN SO 0.5 g/dL (0.4-0.6); GAMMA GLOBULINS SO 1.2 g/dL (0.8-1.7)
== END ==
LOC: M SFHCCLAY 14:08
PROVIDERS: ATTEND Family Medicine
DX: R53.83 Other fatigue (principal); D89.2 Hypergammaglobulinemia, unspecified

== ENCOUNTER 2024-10-05 09:16 | Day surgery (SDC) | payer MEDICARE ==
[~2024-10-05] VITALS: Ht 157.5 cm; Wt 71.9 kg
[~2024-10-05 09:16] MED LIST changes: +LIDOCAINE 2% 100MG/5ML SDV (FOR ANES.) As Ordered ONE; +propofoL 200 MG/20 ML VIAL As Ordered ONE
[2024-10-05 11:29] VITALS: TEMP 97.8
[2024-10-05 11:46] VITALS: BP 124/67; O2SAT 95
== END 2024-10-05 11:52 | disposition home or self-care (01) ==
LOC: M OPP 09:16
PROVIDERS: ATTEND Surgery
DX: D12.6 Benign neoplasm of colon, unspecified (principal); Z86.0100 Personal history of colon polyps, unspecified; Z87.891 Personal history of nicotine dependence

== ENCOUNTER → 2025-03-13 | Outpatient (CLI) | payer MEDICARE ==
[~2025-03-13] MED LIST changes: -LIDOCAINE 2% 100MG/5ML SDV (FOR ANES.) As Ordered ONE; -propofoL 200 MG/20 ML VIAL As Ordered ONE
== END ==
LOC: M WHC 08:59
PROVIDERS: ATTEND Nurse Practitioner Family
DX: Z12.31 Encounter for screening mammogram for malignant neoplasm of breast (principal); R92.313 Mammographic fatty tissue density, bilateral breasts

== ENCOUNTER → 2025-04-06 | Outpatient (REF) | payer MEDICARE | LOC: M LAB REF 17:07 | PROVIDERS: ATTEND Physician Assistant | DX: R30.0 Dysuria (principal) ==

== ENCOUNTER → 2025-07-10 | Outpatient (REF) | payer MEDICARE ==
[2025-07-10 13:41] LABS: PLATELET COUNT, AUTOMATED 270 10^3/uL (150-450)
[2025-07-10 13:45] LABS: ALT/SGPT 16.0 U/L (7.0-40); AST/SGOT 20.0 U/L (<34); CALCIUM LEVEL 9.1 MG/DL (8.3-10.6); CARBON DIOXIDE LEVEL 27.0 MMOL/L (20-31); CHLORIDE LEVEL 104.0 MMOL/L (98-107); CHOLESTEROL LEVEL 181.0 MG/DL (<200); CHOLESTEROL RISK RATIO 3.33 (<5); CREATININE FOR GFR 0.77 MG/DL (0.55-1.30); GLOMERULAR FILTRATION RATE 80.4 (>39); LDL CHOLESTEROL 109.7 MG/DL (<100); MAGNESIUM LEVEL 1.9 MG/DL (1.8-2.4); NON-HDL-C 126.7 MG/DL; POTASSIUM SERUM 4.3 MMOL/L (3.5-5.1); SODIUM LEVEL 140.0 MMOL/L (136-145); TRIGLYCERIDES LEVEL 85.0 MG/DL (<150)
[2025-07-10 14:00] LABS: VITAMIN B12 LEVEL 381.0 PG/ML (211-911)
[2025-07-10 14:18] LABS: ESTIMATED AVERAGE GLUCOSE 108.0 MG/DL (60-110)
== END ==
LOC: M SFHCCLAY 08:04
PROVIDERS: ATTEND Student in an Organized Health Care Education/Training Program
DX: Z00.00 Encounter for general adult medical examination without abnormal findings (principal); Z79.899 Other long term (current) drug therapy

== ENCOUNTER → 2025-07-16 | Outpatient (CLI) | payer MEDICARE | LOC: M WHC 14:04 | PROVIDERS: ATTEND Student in an Organized Health Care Education/Training Program | DX: Z00.00 Encounter for general adult medical examination without abnormal findings (principal); M81.0 Age-related osteoporosis without current pathological fracture ==